=== PATIENT | female | born 1995 | race Caucasian/White ===

== ENCOUNTER 2020-12-18 11:14 | Outpatient (REF) | payer MEDICAID, SELFPAY | END 2020-12-18 11:15 | disposition home or self-care (01) | LOC: HO.LAB 11:14 | PROVIDERS: Visit Provider Internal Medicine | DX: Z20.822 Contact with and (suspected) exposure to COVID-19 (principal) | CPT/HCPCS: C9803; U0003; U0005 ==

== ENCOUNTER 2023-06-02 09:39 | Outpatient (AMB) | payer MEDICAID, SELFPAY ==
--- NOTE | 2023-06-02 09:41 | MHC.OFFVIS ---
Intake Vital Signs 06/02/23 09:47 Height 5 ft Weight 128 lb BMI 25.0 BP 130/78 Blood Pressure Location Rt brachial Position Sitting Pulse 82 Intake Visit Reasons: lipoma of back Intake Note: This patient presents for an assessment for lipoma of back. Patient c/o; US lower back targeted 02/25/2020, reports discomfort, denies pain. 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 She says that this was 1st noticed about 3 years ago. This seems to have decreased in size just a little bit. She describes some back pain chronically and to have this mass removed. She denies any skin changes. She denies any episodes of swelling and discharge. [facility] Medical History (Updated 06/02/23 @ 10:02 by Abelardo Gomez MD) Lipoma of back Surgical History No pertinent past surgical history Family History Maternal Aunt Cancer Social History Unable to assess alcohol history related to: Unable to respond Patient Tobacco Use Status: Never used Tobacco Review of Systems Const Denies chills and Denies fever(s) Card Denies chest pain, Denies dyspnea and Denies dyspnea on exertion Resp Denies cough, Denies dyspnea and Denies dyspnea on exertion GI Denies hematochezia and Denies change in bowel habits Denies hematuria Musc Denies back pain and Denies limited range of motion Neuro Denies focal weakness and Denies convulsions Psych Denies depression and Denies mood swings Physical Exam Vital Signs: Last Vital Signs Pulse 82 06/02/23 09:47 BP 130/78 06/02/23 09:47 BMI result Body Mass Index 25.0 Const General: comfortable and no acute distress Orientation/consciousness: patient oriented x3 Neck Neck: Yes no lymphadenopathy Resp Auscultation: clear to auscultation bilaterally Cardio Rhythm: regular rhythm GI Palpation (GI): Soft to palpation, nontender and no guarding Back/Spine/Pelvis Other: On the lower back a little to the left of midline - lipomatous mass about 3 cm in size, well-defined, nontender non inflamed Neuro General: patient oriented x3 Assessment & Plan Assessment & Plan (1) Lipoma of back: Code(s): D17.1 - Benign lipomatous neoplasm of skin and subcutaneous tissue of trunk Plan: She was to proceed with excision of this lipoma of the back. I explained to the technique of excision under local anesthesia. I reviewed the risks including but not limited to bleeding and infections, as well as the benefits and alternatives. She says she understands and wants to proceed. She is willing to try this under local anesthesia instead of being under. We will schedule this on her next visit here in the office. Coding Level of Care Code New Pt Level 3 (17056) Diagnoses Lipoma of back D17.1
[2023-06-02 09:47] VITALS: BP 130/78; PULSE 82; BMI 25.0
== END 2023-06-02 10:03 | disposition home or self-care (01) ==
PROVIDERS: PCP Internal Medicine; Referring Provider Registered Nurse; Visit Provider Surgery
DX: D17.1 Benign lipomatous neoplasm of skin and subcutaneous tissue of trunk (principal)
CPT/HCPCS: 99203

== ENCOUNTER → 2023-06-02 09:39 | Outpatient (BNVA) | payer MEDICAID, SELFPAY | PROVIDERS: PCP Internal Medicine; Referring Provider Registered Nurse; Visit Provider Surgery ==

== ENCOUNTER 2023-06-23 09:04 | Outpatient (REF) | payer MEDICAID, SELFPAY | END 2023-06-23 09:05 | disposition home or self-care (01) | LOC: HO.LNP 09:04 | PROVIDERS: PCP Internal Medicine; Visit Provider Surgery | DX: D17.1 Benign lipomatous neoplasm of skin and subcutaneous tissue of trunk (principal) | CPT/HCPCS: 21932; 88304 ==

== ENCOUNTER 2023-06-23 09:04 | Outpatient (AMB) | payer MEDICAID, SELFPAY ==
--- NOTE | 2023-06-23 09:20 | MHC.OFFVIS ---
Intake Vital Signs 06/23/23 09:23 Height 5 ft Weight 128 lb 0.006 oz BMI 25.0 BP 115/56 L Blood Pressure Location Rt brachial Position Sitting Pulse 91 Intake Visit Reasons: excision lipoma of the back Intake Note: This patient presents for in-office procedure for excision of lipoma of the back. Patient c/o; reports no changes or complaints at this time. Behavioral Health Aide Required: No Accompanied by: Other Relationship Allergies No Known Allergies Allergy (Verified 06/23/23 09:26) HPI excision lipoma of the back HPI Details She is here for excision of a lipoma from the back. [facility] Medical History (Updated 06/02/23 @ 10:02 by Abelardo Gomez MD) Lipoma of back Surgical History (Updated 06/23/23 @ : by ENRICO Anderson) Status post excision of lipoma (~06/23/23) No pertinent past surgical history Family History (Reviewed 06/23/23 @ 09: by ENRICO Anderson) Maternal Aunt Cancer Social History Unable to assess alcohol history related to: Unable to respond Patient Tobacco Use Status: Never used Tobacco Physical Exam Vital Signs: Last Vital Signs Pulse 91 06/23/23 09:23 BP 115/56 L 06/23/23 09:23 BMI result Body Mass Index 25.0 Office Procedures Excision Details: She was in prone position. The area of the lipoma was prepped and draped. Lidocaine 1% was used for local anesthesia. I made a generous transverse incision on the skin overlying the lipoma on the back area. This was made using blade 15. I carried down the incision through the full-thickness of the skin subcutaneous fat. I continued to palpate the lipoma. This actually was subfascial. I had to open up the fascia you with blade 15 as well as with Metzenbaum scissors. The lipoma was then visualized under the fascia. I sharply dissected this with the Metzenbaum scissors until this was delivered. This measured 4 x 4 cm. This was sent as a specimen. I closed the incision with full-thickness nylon 3-0 interrupted sutures. Dressings were applied. The procedure was completed. She tolerated procedure well. There there were no immediate complications. Estimated blood loss about 5 cc. She was given wound care instructions. She can take Tylenol and ibuprofen for pain. I will see her in the office for follow-up in about 2 weeks for removal of sutures. 36606-[id number]/arms/legs >4cm Procedure code (CPT) selection complete Assessment & Plan Assessment & Plan (1) Lipoma of back: Code(s): D17.1 - Benign lipomatous neoplasm of skin and subcutaneous tissue of trunk Plan: excision was done under local anesthesia. Given wound care instructions. Coding Level of Care Code Procedure Only Diagnoses Lipoma of back D17.1 CPT Codes Trunk/Arms/Legs - CPT: 09452-ebfbg/arms/legs >4cm ([id number])
[2023-06-23 09:23] VITALS: BP 115/56; PULSE 91; BMI 25.0
== END 2023-06-23 09:53 | disposition home or self-care (01) ==
PROVIDERS: PCP Internal Medicine; Visit Provider Surgery
DX: D17.1 Benign lipomatous neoplasm of skin and subcutaneous tissue of trunk (principal)
CPT/HCPCS: 21932

== ENCOUNTER 2023-07-07 09:00 | Outpatient (AMB) | payer MEDICAID, SELFPAY ==
--- NOTE | 2023-07-07 09:04 | MHC.OFFVIS ---
Intake Vital Signs 07/07/23 09:13 Height 5 ft Weight 130 lb BMI 25.4 BP 124/74 Blood Pressure Location Lt brachial Position Sitting Pulse 90 Intake Visit Reasons: s/p excision lipoma of back Intake Note: Patient is seen in office for post op assessment post excision of back lipoma. Pt c/o: denies any concerns regarding the incision, healing as expected. 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 She tolerated procedure well. She currently denies significant complaints. [facility] Medical History Lipoma of back Surgical History Status post excision of lipoma (06/23/23) No pertinent past surgical history Family History Maternal Aunt Cancer Unable to assess alcohol history related to: Unable to respond Patient Tobacco Use Status: Never used Tobacco Review of Systems Const Denies chills and Denies fever(s) Card Denies chest pain, Denies dyspnea and Denies dyspnea on exertion Resp Denies cough, Denies dyspnea and Denies dyspnea on exertion GI Denies hematochezia and Denies change in bowel habits Denies hematuria Musc Denies back pain and Denies limited range of motion Neuro Denies focal weakness and Denies convulsions Psych Denies depression and Denies mood swings Physical Exam Const General: comfortable and no acute distress Back/Spine/Pelvis Other: Excision site well healed, clean, dry, not infected, sutures intact Assessment & Plan Assessment & Plan (1) Lipoma of back: Code(s): D17.1 - Benign lipomatous neoplasm of skin and subcutaneous tissue of trunk Plan: Status post excision. Her incision is well healed. I removed her sutures. Her path report shows a lipoma. She understands the benign nature of this pathology. She can follow up on a p.r.n. basis. Coding Level of Care Code Global (96112) Diagnoses Lipoma of back D17.1
[2023-07-07 09:13] VITALS: BP 124/74; PULSE 90; BMI 25.4
== END 2023-07-07 09:15 | disposition home or self-care (01) ==
PROVIDERS: PCP Internal Medicine; Visit Provider Surgery
DX: D17.1 Benign lipomatous neoplasm of skin and subcutaneous tissue of trunk (principal)
CPT/HCPCS: 99024

== ENCOUNTER → 2023-07-07 09:00 | Outpatient (BNVA) | payer MEDICAID, SELFPAY | PROVIDERS: PCP Internal Medicine; Visit Provider Surgery ==

== ENCOUNTER 2024-05-17 18:37 | Outpatient (REF) | payer MEDICAID, SELFPAY ==
[2024-05-19 18:08] LABS: HPV mRNA E6/E7 Not Detected (Not Detected)
[2024-05-20 12:16] LABS: C. trachomatis RNA TMA NOT DETECTED
[2024-05-20 12:17] LABS: N. gonorrhoeae RNA TMA NOT DETECTED; Trichomonas (NAAT) NOT DETECTED
== END 2024-05-17 18:38 | disposition home or self-care (01) ==
LOC: HO.HHCLNP 18:37
PROVIDERS: Visit Provider Advanced Practice Midwife
DX: Z11.3 Encounter for screening for infections with a predominantly sexual mode of transmission (principal); Z12.4 Encounter for screening for malignant neoplasm of cervix
CPT/HCPCS: 36415; 87491; 87591; 87624; 87661; 88175

== ENCOUNTER 2025-05-18 10:55 | Outpatient (REF) | payer MEDICAID, SELFPAY ==
[2025-05-18 13:45] LABS: MANUAL DIFF FLAG NO
[2025-05-18 13:54] LABS: Hematocrit 30.4 % (37.0-47.0); Hemoglobin 8.7 g/dl (12.0-16.0); Imm Gran Abs Auto 0.03 X10*3/uL (0.00-0.03); Imm Gran Pct Auto 0.4 % (0.0-0.4); Lymphocytes Absolute Auto 2.3 X10*3/uL (1.2-4.9); Mean Corpuscular HGB Conc 28.6 g/dl (31.0-35.0); Mean Corpuscular Hemoglobin 20.6 pg (27.0-33.0); Mean Corpuscular Volume 71.9 fL (80.0-98.0); NRBC Abs Auto 0.000 X10*3/uL (0.0-0.012); NRBC Pct Auto 0.0 /100WBC (0.0-0.2); Platelet Count 397 X10*3/uL (160-400); Red Blood Count 4.23 X10*6/uL (4.20-5.50); White Blood Count 8.1 X10*3/uL (4.8-10.8)
[2025-05-18 14:08] LABS: HIV Num 1 0.05 S/CO (0.00-0.99)
[2025-05-18 14:20] LABS: Anion Gap 11 (12-20); Blood Urea Nitrogen 5 mg/dL (9-16); Calcium 9.1 mg/dL (8.4-10.2); Carbon Dioxide 25 mmol/L (22-29); Chloride 108 mmol/L (96-108); Cholesterol 112 mg/dL (<200); Estimated Glomerular Filt Rate > 60; HDL Cholesterol 44 mg/dL (>40); Iron 14 mcg/dL (30-160); Percent Iron Saturation 4 % (15-50); Potassium 3.7 mmol/L (3.3-5.1); Sodium 140 mmol/L (135-145); Total Iron Binding Capacity 329 mcg/dL (228-428); Triglycerides 59 mg/dL (<150); Unsaturated Iron Binding 315 ug/dL
[2025-05-18 14:23] LABS: Ferritin 8 ng/mL (10-122)
== END 2025-05-18 10:56 | disposition home or self-care (01) ==
LOC: HO.HHCL 10:55
PROVIDERS: PCP Nurse Practitioner; Visit Provider Nurse Practitioner
DX: Z11.4 Encounter for screening for human immunodeficiency virus [HIV] (principal); R53.83 Other fatigue
CPT/HCPCS: 36415; 80048; 80061; 82306; 82728; 83540; 85025; 87389